=== PATIENT | female | born 1990 | race Hispanic/Latino ===

== ENCOUNTER 2022-04-08 23:19 | Emergency (ER) | payer SELFPAY ==
--- NOTE | 2022-04-08 23:24 | ERPHSYRPT ---
- History of Present Illness Time Seen by Provider: 04/08/22 23:24 Source: patient Exam Limitations: no limitations Physician History: This is a right-handed 31-year-old female who fell prior to arrival onto her left shoulder. She has no complaints of neck pain or head injury. Pain is along the left clavicle. Occurred: just prior to arrival Method of Injury: fell Quality: constant, aching Severity of Pain-Max: moderate Severity of Pain-Current: moderate Extremities Pain Location: other: left (Clavicle) Modifying Factors: Improves With: movement Associated Symptoms: none Allergies/Adverse Reactions: No Known Drug Allergies Allergy (Unverified 04/08/22 23:41) Travel Risk - International Travel Have you traveled outside of the country in past 3 weeks: No - Coronavirus Screening Are you exhibiting any of the following symptoms?: No Close contact with a COVID-19 positive Pt in past 14-21 Days: No - Review of Systems Constitutional: No Symptoms Eyes: No Symptoms Ears, Nose, & Throat: No Symptoms Respiratory: No Symptoms Cardiac: No Symptoms Abdominal/Gastrointestinal: No Symptoms Genitourinary Symptoms: No Symptoms Musculoskeletal: Fall, Injury (Left clavicle) Skin: No Symptoms Neurological: No Symptoms Psychological: No Symptoms Endocrine: No Symptoms Hematologic/Lymphatic: No Symptoms Immunological/Allergic: No Symptoms All Other Systems: Reviewed and Negative - Past Medical History Pertinent Past Medical History: Yes - Past Surgical History Past Surgical History: Yes - Nursing Vital Signs Nursing Vital Signs: Initial Vital Signs Temperature 98.1 F 04/08/22 23:42 Pulse Rate 94 H 04/08/22 23:42 Respiratory Rate 18 04/08/22 23:42 Blood Pressure 136/95 04/08/22 23:42 O2 Sat by Pulse Oximetry 100 04/08/22 23:42 Pain Scale Pain Intensity 10 - Physical Exam General Appearance: no apparent distress, alert, anxiety Eyes, Ears, Nose, Throat Exam: normal ENT inspection, moist mucous membranes Neck Exam: normal inspection, non-tender, supple, full range of motion Cardiovascular/Respiratory Exam: chest non-tender, no respiratory distress Abdominal Exam: non-tender Back Exam: normal inspection, normal range of motion, No CVA tenderness, No vertebral tenderness Shoulder Exam: normal inspection, no evidence of injury, limited ROM (Left shoulder secondary to painful left clavicle), pain (On the left clavicle) Elbow/Forearm Exam: normal inspection, non-tender, no evidence of injury Wrist Exam: normal inspection Hand Exam: normal inspection Neuro/Tendon Exam: normal sensation, normal motor functions, normal tendon functions, responds to pain, no evidence tendon injury Mental Status Exam: alert, oriented x 3, cooperative Skin Exam: normal color, warm, dry SpO2 Interpretation: normal O2 Delivery: Room Air - Course Nursing assessment & vital signs reviewed: Yes Ordered Tests: Active Orders 24 hr Category Date Time Status Sling Application STAT Care 04/09/22 00:12 Ordered CLAVICLE Stat Exams 04/09/22 00:01 Ordered - Progress Progress: unchanged, pain not gone completely, re-examined Progress Note: 04/09/22 00:14 X-ray left clavicle shows distal third fracture left clavicle with overlap. Fractured ends are not in contact Counseled pt/family regarding: diagnosis, need for follow-up, rad results - Departure Departure Disposition: Home Clinical Impression: Closed left clavicular fracture Condition: Stable Critical Care Time: No Referrals: DOCTOR,NO FAMILY [Primary Care Provider] - Follow up/PCP as directed Additional Instructions: Ice pack to left clavicle area. Follow-up tomorrow at the [facility] orthopedic clinic at 8 AM for further evaluation management. Add ibuprofen 600 mg orally with food 3 times a day for pain control.
[2022-04-08 23:53] VITALS: O2SAT 100
[2022-04-09] MEDS ORDERED: MOTRIN 600 MG PO ONE (00:12)
[2022-04-09] MEDS ORDERED: OXYCODONE-ACETAMINOPHEN 10-325 PO STA (00:12)
[2022-04-09] MEDS ORDERED: PERCOCET TABLET 5/325MG PO STA (00:12)
[2022-04-09] MEDS ORDERED: MOTRIN 600 MG ONE (00:19)
[2022-04-09] MEDS ORDERED: PERCOCET TABLET 5/325MG ONE (00:19)
[2022-04-09] MEDS ORDERED: OXYCODONE-ACETAMINOPHEN 10-325 ONE (00:20)
[2022-04-09 00:30] VITALS: BP 118/82; PULSE 84
--- NOTE | 2022-04-09 08:59 | XRAY ---
Indication: Pain following fall. Comparison: None 2 view left clavicle demonstrates comminuted shaft fracture with bayonet apposition/alignment. No other bony, articular, or soft tissue abnormalities.
== END 2022-04-09 00:45 | disposition home or self-care (01) ==
LOC: ED 23:19
DX: S42.032A Displaced fracture of lateral end of left clavicle, initial encounter for closed fracture (principal); W19.XXXA Unspecified fall, initial encounter; M25.512 Pain in left shoulder
CPT/HCPCS: 73000; 99283; A9270-GY